=== PATIENT | male | born 1945 | race Caucasian/White ===

== ENCOUNTER → 2023-07-07 12:19 | Outpatient (CLI) | payer OTHER, SELFPAY ==
--- NOTE | 2023-07-07 | DI.ECHO.S_ITS ---
[facility] +---------+ : : [address] : [address] : : : : [id number] : : : : Phone: [phone] +---------+ Echocardiogram Report + + :Name: SAMANTHA CARBONE Study Date: 07/07/2023 Height: 67 in : :[facility] ReadingLocation: Weight: 200 lb : : Gender: Male BSA: 2.0 m2 : :: 1945 Age: 77 yrs BP: 150/86 mmHg: :Reason For Study: CORONARY ANGIOPLASTY IMPLANT AND GRAFT : :Ordering Physician: BERNARD, : :SULTANA Performed By: Tish Cheng : :Referring: SULTANA WAGNER : + + Interpretation Summary The study quality was technically difficult. A contrast injection of Definity was performed to improve assessment of LV function. Left ventricular ejection fraction is estimated to be 55 +/- 5%. There is trace mitral regurgitation. There is mild aortic regurgitation. There is mild tricuspid regurgitation. Procedure: A two-dimensional transthoracic echocardiogram with color flow and Doppler was performed. The study quality was technically difficult. A contrast injection of Definity was performed to improve assessment of LV function. The patient was in sinus bradycardia with heart rates between 43-56 bpm during the exam. Left Ventricle: The left ventricle is normal in size and wall thickness. Left ventricular ejection fraction is estimated to be 55 +/- 5%. Left ventricular wall motion is normal. Right Ventricle: The right ventricle is normal size. The right ventricular systolic function is normal. Atria: The left atrial size is normal. Right atrial size is normal. There is no Doppler evidence for an interatrial shunt. Mitral Valve: The mitral valve is normal in structure and function. There is trace mitral regurgitation. Aortic Valve: The aortic valve is trileaflet. The aortic valve opens well. There is no aortic valve stenosis. There is mild aortic regurgitation. Tricuspid Valve: The tricuspid valve is normal in structure and function. There is mild tricuspid regurgitation. Pulmonic Valve: The pulmonic valve leaflets are thin and pliable; valve motion is normal. There is mild pulmonic regurgitation. Great Vessels: The aortic root is normal size. The dimensions of the ascending aorta are normal. The inferior vena cava was not well visualized. Pericardium/ Pleura There is no pericardial effusion. There is no pleural effusion. MMode/2D Measurements & Calculations LVIDd: 5.0 cm LVOT diam: 2.1 cm LVIDs: 3.6 cm Ao root diam: 3.7 cm FS: 29.5 % asc Aorta Diam: 3.7 cm EPSS: 1.4 cm Ao Arch Diam (Prox Trans): 3.4 cm IVSd: 0.85 cm LVPWd: 0.76 cm LV portillo. diameter/BSA (cm/m^2): 2.5 LV sys. diameter/BSA (cm/m^2): 1.8 LA A2 area: 23.0 cm2 RA long axis: 6.3 cm LA A4 area: 18.9 cm2 RA area: 20.7 cm2 LA length (vol): 6.0 cm RA vol: 57.7 ml LA vol: 61.3 ml RA : 28.5 ml/m2 LA vol index: 30.3 ml/m2 RVD1 (basal): 3.9 cm RVD2 (mid): 3.1 cm TAPSE: 2.1 cm Doppler Measurements & Calculations LVOT Max Joshua: 73.7 cm/sec MV E max joshua: 75.8 cm/sec LV V1 max P.2 mmHg MV A max joshua: 55.2 cm/sec LV V1 VTI: 18.4 cm MV E/A: 1.4 AI P1/2t: 841.0 msec Med Peak E' Joshua: 6.3 cm/sec AI dec slope: 145.4 cm/sec2 E/E' med: 11.9 Lat Peak E' Joshua: 7.8 cm/sec E/E' lat: 9.7 E/e' average: 10.8 MV dec time: 0.22 sec TR max joshua: 258.4 cm/sec Pulm A Revs Joshua: 24.9 cm/sec TR max P.7 mmHg Pulm A Revs Dur: 0.14 sec PA V2 max: 77.0 cm/sec PA V2 mean: 52.7 cm/sec PA mean P.2 mmHg PA pr(Accel): 44.7 mmHg SV(LVOT): 65.6 ml Reading Physician:05:09 PM
== END ==
PROVIDERS: PCP Family Medicine; Referring Provider Chiropractor; Visit Provider Chiropractor
DX: Z95.5 Presence of coronary angioplasty implant and graft (principal); I08.2 Rheumatic disorders of both aortic and tricuspid valves
CPT/HCPCS: 93005; C8929; Q9957